=== PATIENT | female | born 1995 | race Caucasian/White ===

== ENCOUNTER 2019-10-12 09:44 | Day surgery (SDC) | payer BC ==
[2019-10-12] MEDS ORDERED: Ondansetron 4 MG/2 ML SDV IVPUSH ONE ×2 (10:27→13:59)
[2019-10-12] MEDS ORDERED: HYDROmorphone 1 MG/ML Syringe IVPUSH STA (10:27)
[2019-10-12] MEDS ORDERED: Sodium Chloride 0.9% 1,000 ML IV SCH (10:30)
--- NOTE | 2019-10-12 10:31 | EDM.PDOC ---
ED HPI GENERAL MEDICAL PROBLEM - General Chief Complaint: Abdominal Pain Stated Complaint: STOMACH PAIN Time Seen by Provider: 10/12/19 10:14 Source of Information: Reports: Patient, Family (young son) History Limitations: Reports: No Limitations - History of Present Illness INITIAL COMMENTS - FREE TEXT/NARRATIVE: Mrs. Garcia is a very pleasant 23-year-old woman with a past medical history significant for GERD, for which she takes Nexium every morning, who now presents to the ED stating that she developed epigastric abdominal pain last night, then nausea and vomiting this morning. She is unable to describe the character of her abdominal pain, other than it is "hurtin'". She states that the pain radiates to her back, and she indicates the right infrascapular area. She states that her pain is made better by being upright, otherwise, she has not identified any modifiers. She states that she drank half a bottle of Pepto- Bismol, 2 Luci-Joliet's, Tums, and her usual Nexium, without relief of her symptoms. She states that she feels like she needs to defecate, but has not had a bowel movement. No recent diarrhea or urinary symptoms. She states that her symptoms feel similar to prior episodes of GERD, however, those symptoms have always been able to be treated with antacids. Here in the ED, the patient is found to be hemodynamically stable, afebrile, saturating 97% on room air. The patient states that she last ate a alvarez cheeseburger and fries around 18: 30 to 19:00 last night. The patient and her family are visiting from [place]. Middle Abdomen Pain Score (Numeric/FACES): 10 - Related Data Allergies Allergy/AdvReac Type Severity Reaction Status Date / Time rocuronium [From Zemuron] Allergy Severe Other Verified 10/12/19 15:01 Home Meds: Home Meds Acetaminophen/HYDROcodone [[place] 325-5 MG] 1 tab PO Q4H PRN 14 Days #20 tablet 10/12/19 [Rx] Docusate Sodium [Colace] 100 mg PO BID 20 Days #40 cap 10/12/19 [Rx] Esomeprazole Magnesium [Nexium] 40 mg PO DAILY 10/12/19 [History] Ibuprofen 600 mg PO Q6HR PRN 14 Days #80 tablet 10/12/19 [Rx] Past Medical History Gastrointestinal History: Reports: GERD - Past Surgical History HEENT Surgical History: Reports: Oral Surgery (wisdom teeth extraction), Tonsillectomy Social & Family History - Tobacco Use Smoking Status *Q: Never Smoker Second Hand Smoke Exposure: No - Caffeine Use Caffeine Use: Reports: None - Alcohol Use Alcohol Use History: Yes Alcohol Use Frequency: Rarely - Recreational Drug Use Recreational Drug Use: Yes Drug Use in Last 12 Months: Yes Recreational Drug Type: Reports: Marijuana/Hashish (last smoked October 2018) - Living Situation & Occupation Living situation: Reports: , with Spouse, with Family (1 son) Occupation: Unemployed ED ROS GENERAL - Review of Systems Review Of Systems: Comprehensive ROS is negative, except as noted in HPI. ED EXAM, GI/ABD - Physical Exam Exam: See Below Exam Limited By: No Limitations General Appearance: Alert, WD/WN, No Apparent Distress (appears uncomfortable) Eyes: Bilateral: Normal Appearance, EOMI Ears: Normal External Exam, Hearing Grossly Normal Nose: Normal Inspection Throat/Mouth: Normal Inspection, Normal Lips, Normal Voice, No Airway Compromise Head: Atraumatic, Normocephalic Neck: Normal Inspection, Full Range of Motion Respiratory/Chest: No Respiratory Distress, Lungs Clear, Normal Breath Sounds, No Accessory Muscle Use Cardiovascular: Normal Peripheral Pulses, Regular Rate, Rhythm, No Edema, No Gallop, No JVD, No Murmur, No Rub GI/Abdominal Exam: Normal Bowel Sounds, Soft, No Organomegaly, No Distention, No Abnormal Bruit, No Mass, Pelvis Stable, Tender (Exquisite, right upper quadrant only, with true Banegas's sign. Nontender elsewhere.) (Female) Exam: Deferred Rectal (Female) Exam: Deferred Back Exam: Normal Inspection, Full Range of Motion. No: CVA Tenderness (L), CVA Tenderness (R) Extremities: Normal Inspection, Normal Range of Motion, No Pedal Edema, Normal Capillary Refill Neurological: Alert, Oriented, Normal Cognition, No Motor/Sensory Deficits Psychiatric: Normal Affect Skin Exam: Warm, Dry, Intact, Normal Color, No Rash Course - Vital Signs Last Recorded V/S: Last Vital Signs Temp 36.7 C 10/12/19 18:15 Pulse 80 10/12/19 18:30 Resp 14 10/12/19 18:30 BP 112/59 L 10/12/19 18:30 Pulse Ox 97 10/12/19 18:30 - Orders/Labs/Meds Orders: Active Orders 24 hr Category Date Time Status Admission Status [Patient Status] [ADT] Routine ADT 10/12/19 16:07 Active Communication Order [RC] ASDIRECTED Care 10/12/19 16:49 Active Cooling Warming Measures [RC] ASDIRECTED Care 10/12/19 16:49 Active Oxygen Therapy [RC] ASDIRECTED Care 10/12/19 16:49 Active Pulse Oximetry [RC] ASDIRECTED Care 10/12/19 16:49 Active Ready for Discharge [RC] PER UNIT ROUTINE Care 10/12/19 18:25 Active Vital Signs [RC] Q15M Care 10/12/19 16:49 Active HYDROmorphone [Dilaudid] Med 10/12/19 16:49 Active 0.5 mg IVPUSH Q10M PRN Ondansetron [Zofran] Med 10/12/19 16:49 Active 4 mg IVPUSH ONETIME PRN Sodium Chloride 0.9% [Normal Saline] 1,000 ml Med 10/12/19 10:30 Active IV ASDIRECTED diphenhydrAMINE [Benadryl] Med 10/12/19 15:35 Active 25 mg IVPUSH Q6H PRN fentaNYL [Sublimaze] Med 10/12/19 16:49 Active 50 mcg IVPUSH Q5M PRN Schedule Procedure [COMM] Stat Oth 10/12/19 16:07 Ordered Medication Orders Diphenhydramine HCl (Benadryl) 25 mg IVPUSH Q6H PRN PRN Reason: Pruritis Stop: 10/12/19 20:00 Last Admin: 10/12/19 15:48 Dose: 25 mg Fentanyl (Sublimaze) 50 mcg IVPUSH Q5M PRN PRN Reason: Pain Stop: 10/12/19 19:00 Hydromorphone HCl (Dilaudid) 0.5 mg IVPUSH Q10M PRN PRN Reason: Pain (severe 7-10) Stop: 10/12/19 19:00 Sodium Chloride (Normal Saline) 1,000 mls @ 150 mls/hr IV ASDIRECTED YENIFER Stop: 10/12/19 20:00 Last Admin: 10/12/19 10:42 Dose: 150 mls/hr Ondansetron HCl (Zofran) 4 mg IVPUSH ONETIME PRN PRN Reason: Nausea/Vomiting Stop: 10/12/19 19:00 Labs: Laboratory Tests 10/12/19 10/12/19 10/12/19 Range/Units 10:49 10:49 11:10 WBC 11.25 H (3.98-10.04) K/mm3 RBC 5.10 (3.98-5.22) M/mm3 Hgb 14.6 (11.2-15.7) gm/dl Hct 44.2 (34.1-44.9) % MCV 86.7 (79.4-94.8) fl MCH 28.6 (25.6-32.2) pg MCHC 33.0 (32.2-35.5) g/dl RDW Std Deviation 40.1 (36.4-46.3) fL Plt Count 356 (182-369) K/mm3 MPV 10.0 (9.4-12.3) fl Neutrophils % (Manual) 80 H (40-60) % Band Neutrophils % 0 (0-10) % Lymphocytes % (Manual) 16 L (20-40) % Atypical Lymphs % 0 % Monocytes % (Manual) 4 (2-10) % Eosinophils % (Manual) 0 L (0.7-5.8) % Basophils % (Manual) 0 L (0.1-1.2) Platelet Estimate Adequate RBC Morph Comment Normal Sodium 144 (136-145) mEq/L Potassium 3.3 L (3.5-5.1) mEq/L Chloride 104 (98-107) mEq/L Carbon Dioxide 29 (21-32) mEq/L Anion Gap 14.3 (5-15) BUN 8 (7-18) mg/dL Creatinine 0.7 (0.55-1.02) mg/dL Est Cr Clr Drug Dosing 92.71 mL/min Estimated GFR (MDRD) > 60 (>60) mL/min BUN/Creatinine Ratio 11.4 L (14-18) Glucose 94 (74-106) mg/dL Calcium 9.1 (8.5-10.1) mg/dL Total Bilirubin 0.2 (0.2-1.0) mg/dL AST 17 (15-37) U/L ALT 27 (14-59) U/L Alkaline Phosphatase 97 (46-116) U/L Total Protein 8.1 (6.4-8.2) g/dl Albumin 4.2 (3.4-5.0) g/dl Globulin 3.9 gm/dL Albumin/Globulin Ratio 1.1 (1-2) Lipase 103 (73-393) U/L Urine HCG, Qual Negative (NEGATIVE) Meds: Medications Generic Name Dose Route Start Last Admin Trade Name Sujey PRN Reason Stop Dose Admin Diphenhydramine HCl 25 mg 10/12/19 15:35 10/12/19 15:48 Benadryl IVPUSH 10/12/19 20:00 25 mg Q6H PRN Administration Pruritis Fentanyl 50 mcg 10/12/19 16:49 Sublimaze IVPUSH 10/12/19 19:00 Q5M PRN Pain Hydromorphone HCl 0.5 mg 10/12/19 16:49 Dilaudid IVPUSH 10/12/19 19:00 Q10M PRN Pain (severe 7-10) Sodium Chloride 1,000 mls @ 150 mls/hr 10/12/19 10:30 10/12/19 10:42 Normal Saline IV 10/12/19 20:00 150 mls/hr ASDIRECTED YENIFER Administration Ondansetron HCl 4 mg 10/12/19 16:49 Zofran IVPUSH 10/12/19 19:00 ONETIME PRN Nausea/Vomiting Discontinued Medications Generic Name Dose Route Start Last Admin Trade Name Sujey PRN Reason Stop Dose Admin Bupivacaine HCl/Epinephrine Bitart Confirm 10/12/19 15:31 10/12/19 16:34 Marcaine 0.5%/Epinephrine 1:200,000 Administered 10/12/19 15:32 30 ml Dose Administration 50 ml .ROUTE .STK-MED ONE Cefazolin Sodium Confirm 10/12/19 15:44 Ancef Administered 10/12/19 15:45 Dose 2 gm .ROUTE .STK-MED ONE Diatrizoate Meglum/Diatrizoate Sod 45 ml 10/12/19 11:33 10/12/19 12:15 Gastrografin 37% PO 10/12/19 11:34 90 ml ONETIME ONE Administration Famotidine 20 mg 10/12/19 15:35 10/12/19 15:48 Pepcid IVPUSH 10/12/19 15:36 20 mg ONETIME ONE Administration Fentanyl Confirm 10/12/19 15:45 Sublimaze Administered 10/12/19 15:46 Dose 250 mcg .ROUTE .STK-MED ONE Fentanyl Confirm 10/12/19 17:12 Sublimaze Administered 10/12/19 17:13 Dose 100 mcg .ROUTE .STK-MED ONE Fentanyl Confirm 10/12/19 17:51 Sublimaze Administered 10/12/19 17:52 Dose 100 mcg .ROUTE .STK-MED ONE Glycopyrrolate Confirm 10/12/19 16:53 Administered 10/12/19 16:54 Dose 1 mg .ROUTE .STK-MED ONE Hydromorphone HCl 0.5 mg 10/12/19 10:27 10/12/19 10:42 Dilaudid IVPUSH 10/12/19 10:28 0.5 mg ONETIME STA Administration Hydromorphone HCl 0.5 mg 10/12/19 11:38 10/12/19 12:15 Dilaudid IVPUSH 10/12/19 11:39 0.5 mg ONETIME ONE Administration Lidocaine HCl Confirm 10/12/19 15:44 Xylocaine-Mpf 1% Administered 10/12/19 15:45 Dose 4 mls @ as directed .ROUTE .STK-MED ONE Lactated Ringer's Confirm 10/12/19 15:44 Ringers, Lactated Administered 10/12/19 15:45 Dose 1,000 mls @ as directed .ROUTE .STK-MED ONE Lactated Ringer's Confirm 10/12/19 16:52 Ringers, Lactated Administered 10/12/19 16:53 Dose 1,000 mls @ as directed .ROUTE .STK-MED ONE Iopamidol 100 ml 10/12/19 11:33 10/12/19 12:15 Isovue-300 (61%) IVPUSH 10/12/19 11:34 100 ml ONETIME ONE Administration Lidocaine/Epinephrine Confirm 10/12/19 15:31 10/12/19 16:34 Xylocaine 1% With Epinephrine 1:100,000 Administered 10/12/19 15:32 30 ml Dose Administration 40 ml .ROUTE .STK-MED ONE Midazolam HCl Confirm 10/12/19 15:44 Versed 1 Mg/Ml Administered 10/12/19 15:45 Dose 2 mg .ROUTE .STK-MED ONE Neostigmine Methylsulfate Confirm 10/12/19 16:53 Neostigmine Methylsulfate Administered 10/12/19 16:54 Dose 5 mg .ROUTE .STK-MED ONE Ondansetron HCl 4 mg 10/12/19 10:27 10/12/19 10:42 Zofran IVPUSH 10/12/19 10:28 4 mg ONETIME ONE Administration Ondansetron HCl 4 mg 10/12/19 13:59 10/12/19 14:13 Zofran IVPUSH 10/12/19 14:00 4 mg ONETIME ONE Administration Ondansetron HCl Confirm 10/12/19 15:44 Zofran Administered 10/12/19 15:45 Dose 4 mg .ROUTE .STK-MED ONE Propofol Confirm 10/12/19 15:44 Diprivan 20 Ml Administered 10/12/19 15:45 Dose 400 mg .ROUTE .STK-MED ONE Sodium Chloride 10 ml 10/12/19 11:33 10/12/19 12:15 Saline Flush FLUSH 10/12/19 11:34 10 ml ONETIME ONE Administration Vecuronium [place] Confirm 10/12/19 16:52 Vecuronium Administered 10/12/19 16:53 Dose 10 mg .ROUTE .STK-MED ONE - Re-Assessments/Exams Free Text/Narrative Re-Assessment/Exam: 10/12/19 10:30 Both the patient's history and physical examination are consistent with acute cholecystitis, however, I explained to the patient that proving cholecystitis may be difficult, even in the presence of active disease. I have ordered a workup that includes bloodwork, a urine test, an ultrasound of the right upper quadrant, and a CT of her abdomen and pelvis with oral and IV contrast. In the meantime, the patient will be treated with IV Dilaudid, IV Zofran, and IV fluid. 10/12/19 11:44 The patient's CBC is remarkable for a WBC count elevated at 11.25, but with 0% bandemia. The remainder of her CBC is unremarkable. Her CMP is remarkable for potassium mildly depressed at 3.3, with the remainder of her CMP being unremarkable. Her lipase is within normal limits at 103. Her urine test is negative. 10/12/19 12:56 Ultrasound of the right upper quadrant is read by Dr. Evans as: 1. Multiple gallstones. No gallbladder wall thickening or biliary duct dilatation is seen. 2. No additional abnormality is appreciated on right upper quadrant abdominal ultrasound. CT of the abdomen and pelvis with oral and IV contrast as read by Dr. Evans as: 1. Numerous gallstones within the gallbladder. 2. Nothing acute is appreciated on CT study of the abdomen and pelvis. 10/12/19 13:[address] Roe at 13:51. She would like to take the patient to the OR for cholecystectomy. She will come to the ED to evaluate the patient. She would like us to call the OR crew in. 10/12/19 13:[address] Roe's plan to take the patient to the OR was discussed with the patient. The patient is amenable. She requested additional Zofran, but does not need additional Dilaudid at this time. Departure - Departure Time of Disposition: 14:05 Disposition: DC/Tfer to [facility] Condition: Good Clinical Impression: Acute cholecystitis - Discharge Information *PRESCRIPTION DRUG MONITORING PROGRAM REVIEWED*: Not Applicable *COPY OF PRESCRIPTION DRUG MONITORING REPORT IN PATIENT RICHARD: Not Applicable Sepsis Event Note - Evaluation Sepsis Screening Result: No Definite Risk - Focused Exam Vital Signs: Vital Signs Temp Pulse Resp BP Pulse Ox Pulse Ox Pulse Ox 10/12/19 18:30 80 14 112/59 L 97 10/12/19 18:27 96 10/12/19 18:15 36.7 C 78 18 102/56 L 98 10/12/19 18:08 36.7 C 91 18 111/53 L 100 100 10/12/19 10:11 36.6 C 84 20 126/85 97 Date Exam was Performed: 10/12/19 Time Exam was Performed: 18:40 - My Orders Last 24 Hours: My Active Orders 10/12/19 10:30 Sodium Chloride 0.9% [Normal Saline] 1,000 ml IV ASDIRECTED - Assessment/Plan Last 24 Hours: My Active Orders 10/12/19 10:30 Sodium Chloride 0.9% [Normal Saline] 1,000 ml IV ASDIRECTED
[2019-10-12] MEDS ORDERED: Diatrizoate Meglumine/Diatrizoate Sodium 37% 120 ML Bottle PO ONE (11:33)
[2019-10-12] MEDS ORDERED: Sodium Chloride 0.9% 10 ML Syringe FLUSH ONE (11:33)
[2019-10-12] MEDS ORDERED: Iopamidol 612 MG/ML 100 ML Bottle IVPUSH ONE (11:33)
[2019-10-12] MEDS ORDERED: HYDROmorphone 0.5 MG/0.5 ML Syringe IVPUSH ONE (11:38)
--- NOTE | 2019-10-12 13:40 | CT ---
CT abdomen and pelvis Technique: Multiple axial sections were obtained from above the dome of the diaphragm inferiorly through the pubic symphysis. Intravenous contrast was utilized. Oral contrast is seen which is mostly within the proximal bowel and stomach. Comparison: Prior right upper quadrant abdominal ultrasound performed earlier on the same day (10:53 AM) Findings: Visualized lung bases shows nothing acute. Liver shows no focal parenchymal abnormality. Numerous gallstones are seen within the gallbladder correlating with the ultrasound study. Spleen appears within normal limits. Adrenal glands show no nodule. Kidneys show symmetric contrast enhancement without hydronephrosis or mass. Pancreas shows no abnormality. Aorta shows no aneurysm. No retroperitoneal adenopathy or mesenteric abnormalities are seen. Appendix is seen which is normal in size. No pelvic mass or adenopathy is seen. No free fluid or inflammatory change is appreciated. Bone window settings were reviewed which show no acute osseous finding Small fat-containing umbilical hernia is noted. Impression: 1. Numerous gallstones within the gallbladder. 2. Nothing acute is appreciated on CT study of the abdomen and pelvis. Diagnostic code #3 This report was dictated in MDT
--- NOTE | 2019-10-12 13:40 | US ---
Limited abdominal ultrasound: Multiple real-time images of the upper right abdomen were obtained. Comparison: No prior abdominal imaging is available. Liver shows no focal parenchymal abnormality. Numerous gallstones are seen within the gallbladder. No gallbladder wall thickening or pericholecystic fluid is seen. No biliary duct dilatation is seen. Right kidney shows no hydronephrosis or mass. Right kidney has a length of 12.1 cm. Pancreas is incompletely seen. Visualized portions of the pancreas shows no discrete abnormality. Main portal vein is patent. Impression: 1. Multiple gallstones. No gallbladder wall thickening or biliary duct dilatation is seen. 2. No additional abnormality is appreciated on right upper quadrant abdominal ultrasound. Diagnostic code #3 This report was dictated in MDT
--- NOTE | 2019-10-12 14:23 | PCM.PREANE ---
Preanesthetic Assessment - Procedure Proposed Procedure: Laparoscopic cholecystectomy - Anesthesia/Transfusion/Family Hx Anesthesia History: Prior Anesthesia Reaction Type of Anesthesia Reaction: Allergy (per patient, suspected allergic reaction to Rocuronium) Transfusion History: No Prior Transfusion(s) Intubation History: Unknown - Review of Systems General: No Symptoms Pulmonary: No Symptoms Cardiovascular: No Symptoms Gastrointestinal: Abdominal Pain, Decreased Appetite, Nausea Neurological: No Symptoms Other: Reports: None - Physical Assessment Vital Signs: Last Vital Signs Temp 97.8 F 10/12/19 10:11 Pulse 84 10/12/19 10:11 Resp 20 10/12/19 10:11 BP 126/85 10/12/19 10:11 Pulse Ox 97 10/12/19 10:11 Height: 1.55 m Weight: 84.368 kg ASA Class: 2E Mental Status: Alert & Oriented x3 Airway Class: Mallampati = 1 Dentition: Reports: Normal Dentition Thyro-Mental Finger Breadths: 3 Mouth Opening Finger Breadths: 3 ROM/Head Extension: Full Lungs: Clear to Auscultation, Normal Respiratory Effort Cardiovascular: Regular Rate, Regular Rhythm - Lab Values: Laboratory Last Values WBC 11.25 K/mm3 (3.98-10.04) H 10/12/19 10:49 RBC 5.10 M/mm3 (3.98-5.22) 10/12/19 10:49 Hgb 14.6 gm/dl (11.2-15.7) 10/12/19 10:49 Hct 44.2 % (34.1-44.9) 10/12/19 10:49 MCV 86.7 fl (79.4-94.8) 10/12/19 10:49 MCH 28.6 pg (25.6-32.2) 10/12/19 10:49 MCHC 33.0 g/dl (32.2-35.5) 10/12/19 10:49 RDW Std Deviation 40.1 fL (36.4-46.3) 10/12/19 10:49 Plt Count 356 K/mm3 (182-369) 10/12/19 10:49 MPV 10.0 fl (9.4-12.3) 10/12/19 10:49 Neutrophils % (Manual) 80 % (40-60) H 10/12/19 10:49 Band Neutrophils % 0 % (0-10) 10/12/19 10:49 Lymphocytes % (Manual) 16 % (20-40) L 10/12/19 10:49 Atypical Lymphs % 0 % 10/12/19 10:49 Monocytes % (Manual) 4 % (2-10) 10/12/19 10:49 Eosinophils % (Manual) 0 % (0.7-5.8) L 10/12/19 10:49 Basophils % (Manual) 0 (0.1-1.2) L 10/12/19 10:49 Platelet Estimate Adequate 10/12/19 10:49 RBC Morph Comment Normal 10/12/19 10:49 Sodium 144 mEq/L (136-145) 10/12/19 10:49 Potassium 3.3 mEq/L (3.5-5.1) L 10/12/19 10:49 Chloride 104 mEq/L (98-107) 10/12/19 10:49 Carbon Dioxide 29 mEq/L (21-32) 10/12/19 10:49 Anion Gap 14.3 (5-15) 10/12/19 10:49 BUN 8 mg/dL (7-18) 10/12/19 10:49 Creatinine 0.7 mg/dL (0.55-1.02) 10/12/19 10:49 Est Cr Clr Drug Dosing 92.71 mL/min 10/12/19 10:49 Estimated GFR (MDRD) > 60 mL/min (>60) 10/12/19 10:49 BUN/Creatinine Ratio 11.4 (14-18) L 10/12/19 10:49 Glucose 94 mg/dL (74-106) 10/12/19 10:49 Calcium 9.1 mg/dL (8.5-10.1) 10/12/19 10:49 Total Bilirubin 0.2 mg/dL (0.2-1.0) 10/12/19 10:49 AST 17 U/L (15-37) 10/12/19 10:49 ALT 27 U/L (14-59) 10/12/19 10:49 Alkaline Phosphatase 97 U/L (46-116) 10/12/19 10:49 Total Protein 8.1 g/dl (6.4-8.2) 10/12/19 10:49 Albumin 4.2 g/dl (3.4-5.0) 10/12/19 10:49 Globulin 3.9 gm/dL 10/12/19 10:49 Albumin/Globulin Ratio 1.1 (1-2) 10/12/19 10:49 Lipase 103 U/L (73-393) 10/12/19 10:49 Urine HCG, Qual Negative (NEGATIVE) 10/12/19 11:10 - Allergies Allergies/Adverse Reactions: Allergies Allergy/AdvReac Type Severity Reaction Status Date / Time rocuronium [From Zemuron] Allergy Severe Edema Verified 10/12/19 14:09 - Acknowledgements Anesthesia Type Planned: General Anesthesia Pt an Appropriate Candidate for the Planned Anesthesia: Yes Alternatives and Risks of Anesthesia Discussed w Pt/Guardian: Yes Pt/Guardian Understands and Agrees with Anesthesia Plan: Yes PreAnesthesia Questionnaire Gastrointestinal History: Reports: GERD (severe) Other Gastrointestinal History: acid reflux Endocrine/Metabolic History: Reports: Obesity/BMI 30+ - Past Surgical History HEENT Surgical History: Reports: Oral Surgery (wisdom teeth extraction), Tonsillectomy - SUBSTANCE USE Smoking Status *Q: Never Smoker Second Hand Smoke Exposure: No Recreational Drug Use History: Yes Recreational Drug Type: Reports: Marijuana/Hashish (last smoked October 2018) - HOME MEDS Home Medications: Home Meds Esomeprazole Magnesium [Nexium] 40 mg PO DAILY 10/12/19 [History] - CURRENT (IN HOUSE) MEDS Current Meds: Current Medications Sodium Chloride (Normal Saline) 1,000 mls @ 150 mls/hr IV ASDIRECTED YENIFER Last Admin: 10/12/19 10:42 Dose: 150 mls/hr Discontinued Medications Diatrizoate Meglum/Diatrizoate Sod (Gastrografin 37%) 45 ml PO ONETIME ONE Stop: 10/12/19 11:34 Last Admin: 10/12/19 12:15 Dose: 90 ml Hydromorphone HCl (Dilaudid) 0.5 mg IVPUSH ONETIME STA Stop: 10/12/19 10:28 Last Admin: 10/12/19 10:42 Dose: 0.5 mg Hydromorphone HCl (Dilaudid) 0.5 mg IVPUSH ONETIME ONE Stop: 10/12/19 11:39 Last Admin: 10/12/19 12:15 Dose: 0.5 mg Iopamidol (Isovue-300 (61%)) 100 ml IVPUSH ONETIME ONE Stop: 10/12/19 11:34 Last Admin: 10/12/19 12:15 Dose: 100 ml Ondansetron HCl (Zofran) 4 mg IVPUSH ONETIME ONE Stop: 10/12/19 10:28 Last Admin: 10/12/19 10:42 Dose: 4 mg Ondansetron HCl (Zofran) 4 mg IVPUSH ONETIME ONE Stop: 10/12/19 14:00 Last Admin: 10/12/19 14:13 Dose: 4 mg Sodium Chloride (Saline Flush) 10 ml FLUSH ONETIME ONE Stop: 10/12/19 11:34 Last Admin: 10/12/19 12:15 Dose: 10 ml
--- NOTE | 2019-10-12 15:02 | PCM.HP.2 ---
H&P History of Present Illness - General Date of Service: 10/12/19 Source of Information: Patient, Provider History Limitations: Reports: No Limitations - History of Present Illness Initial Comments - Free Text/Narative: The patient is a 23 y/o female who presents with more than 12h of epigastric and RUQ abdominal pain. She reports the pain started last night with a fatty meal. She tried many OTC treatments for GERD without relief. She did not have full evacuation of her bowels today. she reports associated bloating, and nausea and vomiting that started today. In the ED she had lab work and imaging completed which showed an elevated WBC and evidence of cholelithiasis. Middle Abdomen Pain Score (Numeric/FACES): 10 - Related Data Allergies/Adverse Reactions: Allergies Allergy/AdvReac Type Severity Reaction Status Date / Time rocuronium [From Zemuron] Allergy Severe Other Verified 10/12/19 15:01 Home Medications: Home Meds Esomeprazole Magnesium [Nexium] 40 mg PO DAILY 10/12/19 [History] Past Medical History Gastrointestinal History: Reports: GERD (severe) Other Gastrointestinal History: acid reflux Endocrine/Metabolic History: Reports: Obesity/BMI 30+ - Past Surgical History HEENT Surgical History: Reports: Oral Surgery (wisdom teeth extraction), Tonsillectomy Social & Family History - Family History Cardiac: Reports: Cardiomyopathy Endocrine/Metabolic: Reports: Diabetes, type II - Tobacco Use Smoking Status *Q: Never Smoker Second Hand Smoke Exposure: No - Caffeine Use Caffeine Use: Reports: None - Recreational Drug Use Recreational Drug Use: Yes Drug Use in Last 12 Months: Yes Recreational Drug Type: Reports: Marijuana/Hashish (last smoked October 2018) - Living Situation & Occupation Living situation: Reports: , with Spouse, with Family (1 son) Occupation: Unemployed H&P Review of Systems - Review of Systems: Review Of Systems: See Below General: Reports: No Symptoms HEENT: Reports: No Symptoms Pulmonary: Reports: No Symptoms Cardiovascular: Reports: No Symptoms Gastrointestinal: Reports: Abdominal Pain, Nausea, Vomiting Genitourinary: Reports: No Symptoms Musculoskeletal: Reports: No Symptoms Skin: Reports: No Symptoms Neurological: Reports: No Symptoms Hematologic/Lymphatic: Reports: No Symptoms Exam - Exam Exam: See Below - Vital Signs Vital Signs: Last Vital Signs Temp 36.6 C 10/12/19 10:11 Pulse 84 10/12/19 10:11 Resp 20 10/12/19 10:11 BP 126/85 10/12/19 10:11 Pulse Ox 97 10/12/19 10:11 Weight: 84.368 kg - Exam Quality Assessment: No: Supplemental Oxygen General: Alert, Oriented HEENT: EOMI Neck: Supple Lungs: Normal Respiratory Effort GI/Abdominal Exam: Soft, Tender (in RUQ) Extremities: Normal Inspection, No Pedal Edema Skin: Warm, Dry, Intact Neurological: Cranial Nerves Intact Neuro Extensive - Mental Status: Oriented x3, Normal Mood/Affect - Patient Data Lab Results Last 24 hrs: Laboratory Results - last 24 hr 10/12/19 10/12/19 10/12/19 Range/Units 10:49 10:49 11:10 WBC 11.25 H (3.98-10.04) K/mm3 RBC 5.10 (3.98-5.22) M/mm3 Hgb 14.6 (11.2-15.7) gm/dl Hct 44.2 (34.1-44.9) % MCV 86.7 (79.4-94.8) fl MCH 28.6 (25.6-32.2) pg MCHC 33.0 (32.2-35.5) g/dl RDW Std Deviation 40.1 (36.4-46.3) fL Plt Count 356 (182-369) K/mm3 MPV 10.0 (9.4-12.3) fl Neutrophils % (Manual) 80 H (40-60) % Band Neutrophils % 0 (0-10) % Lymphocytes % (Manual) 16 L (20-40) % Atypical Lymphs % 0 % Monocytes % (Manual) 4 (2-10) % Eosinophils % (Manual) 0 L (0.7-5.8) % Basophils % (Manual) 0 L (0.1-1.2) Platelet Estimate Adequate RBC Morph Comment Normal Sodium 144 (136-145) mEq/L Potassium 3.3 L (3.5-5.1) mEq/L Chloride 104 (98-107) mEq/L Carbon Dioxide 29 (21-32) mEq/L Anion Gap 14.3 (5-15) BUN 8 (7-18) mg/dL Creatinine 0.7 (0.55-1.02) mg/dL Est Cr Clr Drug Dosing 92.71 mL/min Estimated GFR (MDRD) > 60 (>60) mL/min BUN/Creatinine Ratio 11.4 L (14-18) Glucose 94 (74-106) mg/dL Calcium 9.1 (8.5-10.1) mg/dL Total Bilirubin 0.2 (0.2-1.0) mg/dL AST 17 (15-37) U/L ALT 27 (14-59) U/L Alkaline Phosphatase 97 (46-116) U/L Total Protein 8.1 (6.4-8.2) g/dl Albumin 4.2 (3.4-5.0) g/dl Globulin 3.9 gm/dL Albumin/Globulin Ratio 1.1 (1-2) Lipase 103 (73-393) U/L Urine HCG, Qual Negative (NEGATIVE) Result Diagrams: 10/12/19 10:49 10/12/19 10:49 Sepsis Event Note - Evaluation Sepsis Screening Result: No Definite Risk - Focused Exam Vital Signs: Vital Signs Temp Pulse Resp BP Pulse Ox 10/12/19 10:11 36.6 C 84 20 126/85 97 Date Exam was Performed: 10/12/19 Time Exam was Performed: 17:59 *Q Meaningful Use (ADM) - VTE Risk Assess *Q Each Risk Factor Represents 1 Point: Minor Surgery Planned, Obesity ( BMI > 25 kg/m2) Total Score 1 Point Risk Factors: 2 - Problem List (1) Acute cholecystitis SNOMED Code(s): 67548227 ICD Code: K81.0 - ACUTE CHOLECYSTITIS Status: Acute Current Visit: Yes Problem List Initiated/Reviewed/Updated: Yes Orders Last 24hrs: Active Orders 24 hr Category Date Time Status Sodium Chloride 0.9% [Normal Saline] 1,000 ml Med 10/12/19 10:30 Active IV ASDIRECTED Medication Orders Sodium Chloride (Normal Saline) 1,000 mls @ 150 mls/hr IV ASDIRECTED YENIFER Last Admin: 10/12/19 10:42 Dose: 150 mls/hr Assessment/Plan Comment:: 23 y/o lady with clinical picture consistent with acute cholecystitis - plan for laparoscopic cholecystectomy, possible open. Discussed risks of bleeding, infection, bile duct injury, and injury to surrounding abdominal structures. Written consent was obtained -Continue n.p.o. -IV fluid resuscitation -Antibiotics per SCIP protocol We will assess need for inpatient stay based on intraoperative findings. Liliana Drake MD General Surgery - Mortality Measure Prognosis:: Good
[2019-10-12] MEDS ORDERED: Bupivacaine 0.5%/EPINEPHrine 1:200,000 50 ML MDV ONE (15:31)
[2019-10-12] MEDS ORDERED: Lidocaine 1% with EPINEPHrine 1:100,000 20 ML MDV ONE (15:31)
[2019-10-12] MEDS ORDERED: diphenhydrAMINE 50 MG/ML SDV IVPUSH PRN (15:35)
[2019-10-12] MEDS ORDERED: Famotidine 20 MG/2 ML SDV IVPUSH ONE (15:35)
[2019-10-12] MEDS ORDERED: Ondansetron 4 MG/2 ML SDV ONE (15:44)
[2019-10-12] MEDS ORDERED: Propofol 200 MG/20 ML SDV ONE (15:44)
[2019-10-12] MEDS ORDERED: ceFAZolin 1 GM Vial ONE (15:44)
[2019-10-12] MEDS ORDERED: Midazolam 1 MG/ML 2 ML SDV ONE (15:44)
[2019-10-12] MEDS ORDERED: Lidocaine 1% 4 ML ONE (15:44)
[2019-10-12] MEDS ORDERED: Lactated Ringers 1,000 ML ONE ×2 (15:44→16:52)
[2019-10-12] MEDS ORDERED: fentaNYL 250 MCG/5 ML SDV ONE (15:45)
[2019-10-12] MEDS ORDERED: Ondansetron 4 MG/2 ML SDV IVPUSH PRN (16:49)
[2019-10-12] MEDS ORDERED: fentaNYL 100 MCG/2 ML SDV IVPUSH PRN (16:49)
[2019-10-12] MEDS ORDERED: HYDROmorphone 0.5 MG/0.5 ML Syringe IVPUSH PRN (16:49)
[2019-10-12] MEDS ORDERED: fentaNYL 100 MCG/2 ML SDV ONE ×2 (17:12→17:51)
--- NOTE | 2019-10-12 18:04 | PCM.OPNOTE ---
- General Post-Op/Procedure Note Date of Surgery/Procedure: 10/12/19 Operative Procedure(s): laparoscopic cholecystectomy Findings: acute cholecystitis Pre Op Diagnosis: acute cholecystitis Post-Op Diagnosis: same Anesthesia Technique: General ET Tube Primary Surgeon: Liliana Drake Anesthesia Provider: Laurie Sewell Endoscopy Technician: Kuldip Germain Pathology: gallbladder Fluid Replacement, Intraop: 1,700 Output, Urine Amount: 0 EBL in mLs: 20 Complications: none apparent Condition: Good
--- NOTE | 2019-10-12 18:09 | PCM.PRNOTE ---
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 The patient was counseled for laparoscopic cholecystectomy, with possible conversion to open. After discussion of the risks of infection, bleeding and injury to the bile duct as well as increased complication from previous intra- abdominal surgery, the patient's consent was obtained. Description of the procedure: The patient was taken back to the operating room and placed in supine position on the operating table. SCD boots were placed and functional prior to the start of the procedure. Preoperative antibiotics were administered according to SCIP protocol, Ancef 2 g IV. A surgical timeout was performed. The patient then had induction of general anesthesia and was intubated without difficulty. The patient was prepped and draped in standard surgical fashion. We began by making an infraumbilical vertical incision and deepened this down through subcutaneous fat to the level of the fascia. This was grasped and incised. We bluntly entered through the peritoneum and a finger sweep was done. A stay suture of 0 Vicryl was placed in the fascia. The 12 mm balloon Woo port was then inserted into the abdomen and the balloon inflated. Insufflation was attached and we had appropriate opening pressures. The abdomen was then insufflated to 15 mmHg. We inserted a scope into the abdomen and inspected the area where we had entered. There was no evidence of injury to surrounding structures with no evidence of bile or bleeding. A TAP block was then performed using 1% lidocaine with epinephrine mixed with 0.5% bupivacaine with epinephrine. The patient was then positioned with head up and right side up to facilitate exposure of the gallbladder. We then proceeded with placing our additional ports. A 5mm port was placed in the epigastric region. Two additional 5mm ports placed under direct visualization in the right upper quadrant. Once we had sufficiently exposed the dome of the gallbladder. This was grasped and retracted cephalad. The gallbladder was stiff and distended. The process of grabbing the gallbladder caused to puncture in 2 locations with some bile and gallstones exiting the gallbladder. This was suctioned and the gallstones retrieved. We proceeded with our dissection to expose the cystic duct and cystic artery. The cystic duct and artery were then clipped and cut using endoscopic scissors. We then proceeded to fully dissect the gallbladder off of the cystic plate using the Bovie device. The gallbladder was then placed in the Endo Catch bag and withdrawn towards the umbilical port. We then inspected the area of the dissection. The Bovie device was then used to achieve hemostasis on the cystic plate. We then reinspected. There was no significant bleeding and hemostasis was achieved. We tdesufflated the abdomen. The ports were then removed. The gallbladder was withdrawn through the umbilical port site. We then proceeded to close the umbilical port site using an 0 Vicryl stitch and by tying down the stay suture. We had good closure of the fascia. A superficial 4-0 monocryl suture was used to approximate the skin. The skin was covered with Dermabond surgical glue. The patient tolerated the procedure well and was extubated without difficulty. He was transported to the PACU in stable condition. All sponge, needle counts correct. I was scrubbed and actively participated in the entire procedure. No immediate complications noted. Complications: None apparent Condition: Good Liliana Drake MD General Surgery
--- NOTE | 2019-10-12 18:17 | PCM.POSTAN ---
POST ANESTHESIA ASSESSMENT - MENTAL STATUS Mental Status: Other (Drowsy) - VITAL SIGNS Vital Signs: Last Vital Signs Temp 36.6 C 10/12/19 10:11 Pulse 84 10/12/19 10:11 Resp 20 10/12/19 10:11 BP 126/85 10/12/19 10:11 Pulse Ox 97 10/12/19 10:11 1808 111/53 91 18 100% 98F - RESPIRATORY Respiratory Status: Respiratory Rate WNL, Airway Patent, O2 Saturation Stable - CARDIOVASCULAR CV Status: Pulse Rate WNL, Blood Pressure Stable - GASTROINTESTINAL GI Status: No Symptoms - PAIN Pain Score: 0 - POST OP HYDRATION Hydration Status: Adequate & Stable
--- NOTE | 2019-10-12 22:03 | PCM48HPAN ---
Post Anesthesia Note - EVALUATION WITHIN 48HRS OF ANESTHETIC Vital Signs in Normal Range: Yes Patient Participated in Evaluation: Yes Respiratory Function Stable: Yes Airway Patent: Yes Cardiovascular Function Stable: Yes Hydration Status Stable: Yes Pain Control Satisfactory: Yes Nausea and Vomiting Control Satisfactory: Yes Mental Status Recovered: Yes Vital Signs: Last Vital Signs Temp 36.8 C 10/12/19 20:09 Pulse 91 10/12/19 20:09 Resp 14 10/12/19 19:00 BP 108/73 10/12/19 20:09 Pulse Ox 98 10/12/19 20:09
== END 2019-10-12 20:42 | disposition home or self-care (01) ==
LOC: JD.ED 09:44 → JD.SDS 14:50 → JD.MS 20:56
PROVIDERS: ATTEND Surgery
DX: K80.12 Calculus of gallbladder with acute and chronic cholecystitis without obstruction (principal); E66.9 Obesity, unspecified; K21.9 Gastro-esophageal reflux disease without esophagitis; Z88.8 Allergy status to other drugs, medicaments and biological substances; Z79.899 Other long term (current) drug therapy; Z68.35 Body mass index [BMI] 35.0-35.9, adult
CPT/HCPCS: 36415; 47562; 74177; 76705; 80053; 81025; 83690; 85007; 85027; 96361; 96374; 96375; 96376; 99285; J0690; J1170; J1200; J2001; J2405; J2704; J2710; J3010; J3490; J7030; J7120; Q9963; Q9967; 00790; J2250